=== PATIENT | male | born 1945 | race Caucasian/White ===

== ENCOUNTER 2022-04-15 16:03 | Inpatient (IN) | payer MEDICARE, OTHER ==
[2022-04-15] MEDS ORDERED: SODIUM CHLORIDE 0.9% 500 ML INFUS.BAG IV ONE (17:21)
[2022-04-15 18:02] LABS: BASO % 0.4 % (0-2.0); EOS % 1.2 % (0-4.5); HEMATOCRIT 40.9 % (35.4-49); HEMOGLOBIN 14.9 GM/dL (11.7-16.9); LYMPH % 9.9 % (8-40); MCH 32.6 pg (25.7-33.7); MCHC 36.4 g/dl (32.0-35.9); MEAN CELL VOLUME 89.7 fl (80-96); MEAN PLT VOLUME 7.7 fl (7.5-11.1); MONO % 7.6 % (3.8-10.2); NEUT % 80.9 % (42.8-82.8); PLATELET COUNT 284 10^3/uL (134-434); RBC 4.56 M/mm3 (4.00-5.60); RDW 13.6 % (11.9-15.9); WHITE BLOOD COUNT 8.9 K/mm3 (4.0-10.0)
[2022-04-15 18:17] LABS: BLOOD UREA NITROGEN 19.8 mg/dL (7-18); CALCIUM 9.4 mg/dL (8.5-10.1)
[2022-04-15 18:18] LABS: ALBUMIN 4.4 g/dl (3.4-5.0)
[2022-04-15 18:20] LABS: CREATININE 1.4 mg/dL (0.55-1.3)
[2022-04-15 18:22] LABS: BILIRUBIN,TOTAL 0.8 mg/dL (0.2-1)
[2022-04-15 20:47] LABS: EPI CELLS 15 /uL (0-25.1); HYALINE CASTS 9 /uL (0-3.1); URINE APPEARANCE CLEAR; URINE BACTERIA 1 /uL (0-1359); URINE BILIRUBIN NEGATIVE (NEGATIVE); URINE COLOR DK YELLOW; URINE GLUCOSE (UA) 3+ (NEGATIVE); URINE KETONE 1+ (NEGATIVE); URINE LEUK ESTERASE NEGATIVE (NEGATIVE); URINE NITRITE NEGATIVE (NEGATIVE); URINE PROTEIN 2+ (NEGATIVE); URINE RBC 12 /uL (0-23.9); URINE WBC 17 /uL (0-25.8)
[2022-04-15] MEDS ORDERED: KETOROLAC TROMETHAMINE 15 MG/ML VIAL IVPUSH ONE (20:51)
[2022-04-15] MEDS ORDERED: SODIUM CHLORIDE 1,000 ML IV SCH (21:15)
[2022-04-15 23:18] LABS: CALCIUM 8.8 mg/dL (8.5-10.1)
[2022-04-15 23:19] LABS: BLOOD UREA NITROGEN 20.7 mg/dL (7-18)
[2022-04-15 23:22] LABS: CREATININE 1.1 mg/dL (0.55-1.3)
[2022-04-15] MEDS ORDERED: HEPARIN NA (PORCINE) 5,000 UNITS/ML 1ML VIAL ONE (23:27)
[2022-04-15] MEDS: HEPARIN NA (PORCINE) 5,000 UNITS/ML 1ML VIAL SQ SCH (23:30)
[2022-04-16 00:06] LABS: MAGNESIUM 1.9 mg/dL (1.8-2.4)
[2022-04-16 00:10] LABS: PHOSPHOROUS 3.2 mg/dL (2.5-4.9)
[2022-04-16] MEDS ORDERED: HEPARIN NA (PORCINE) 5,000 UNITS/ML 1ML VIAL ONE ×2 (05:42→13:48)
[2022-04-16] MEDS: HEPARIN NA (PORCINE) 5,000 UNITS/ML 1ML VIAL SQ SCH ×3 (05:49→22:39)
[2022-04-16 07:29] LABS: BASO % 0.5 % (0-2.0); EOS % 1.5 % (0-4.5); HEMATOCRIT 36.2 % (35.4-49); HEMOGLOBIN 13.1 GM/dL (11.7-16.9); LYMPH % 15.1 % (8-40); MCH 31.9 pg (25.7-33.7); MCHC 36.1 g/dl (32.0-35.9); MEAN CELL VOLUME 88.3 fl (80-96); MEAN PLT VOLUME 7.8 fl (7.5-11.1); MONO % 11.5 % (3.8-10.2); NEUT % 71.4 % (42.8-82.8); PLATELET COUNT 257 10^3/uL (134-434); RDW 13.5 % (11.9-15.9); WHITE BLOOD COUNT 6.5 K/mm3 (4.0-10.0)
[2022-04-16] MEDS ORDERED: amLODIPine BESYLATE 5 MG TABLET (FP) ONE (08:38)
[2022-04-16] MEDS ORDERED: TAMSULOSIN HCL 0.4 MG CAP ONE (08:39)
[2022-04-16] MEDS ORDERED: DOCUSATE SODIUM 100 MG CAPSULE (FP) PO ONE (08:39)
[2022-04-16] MEDS: TAMSULOSIN HCL 0.4 MG CAP PO SCH (09:07)
[2022-04-16] MEDS: DOCUSATE SODIUM 100 MG CAPSULE (FP) PO SCH (09:07)
[2022-04-16 09:34] LABS: PHOSPHOROUS 2.7 mg/dL (2.5-4.9)
[2022-04-16 09:47] LABS: BLOOD UREA NITROGEN 19.9 mg/dL (7-18); CALCIUM 8.9 mg/dL (8.5-10.1)
[2022-04-16] MEDS ORDERED: amLODIPine BESYLATE 5 MG TABLET (FP) PO SCH (10:00)
[2022-04-16] MEDS ORDERED: PATIENT'S OWN MEDICATION (NON-FORMULARY) (Linaclotide [Linzess] 145 MCG Capsule) PO SCH (10:00)
[2022-04-16 12:14] LABS: BLOOD UREA NITROGEN 17.6 mg/dL (7-18)
[2022-04-16 12:18] LABS: CREATININE 0.9 mg/dL (0.55-1.3)
[2022-04-17] MEDS: HEPARIN NA (PORCINE) 5,000 UNITS/ML 1ML VIAL SQ SCH ×3 (06:35→22:24)
[2022-04-17] MEDS: DOCUSATE SODIUM 100 MG CAPSULE (FP) PO SCH (09:39)
[2022-04-17] MEDS: FINASTERIDE 5 MG TABLET (FP) PO SCH (09:39)
[2022-04-17] MEDS: amLODIPine BESYLATE 5 MG TABLET (FP) PO SCH (09:39)
[2022-04-17] MEDS: LOSARTAN POTASSIUM 50 MG TABLET PO SCH (09:39)
[2022-04-17] MEDS: TAMSULOSIN HCL 0.4 MG CAP PO SCH ×2 (09:39→22:23)
[2022-04-17] MEDS ORDERED: PATIENT'S OWN MEDICATION (NON-FORMULARY) (Amlodipine Bes/Olmesartan Med [Amlodipine-Olmesa PO SCH (10:00)
[2022-04-17] MEDS: SODIUM CHLORIDE 1,000 ML IV SCH (12:26)
[2022-04-17] MEDS: ACETAMINOPHEN 325 MG TABLET (FP) PO PRN ×2 (14:37→22:41)
[2022-04-17 15:21] LABS: BASO % 0.4 % (0-2.0); EOS % 0.7 % (0-4.5); HEMATOCRIT 36.5 % (35.4-49); HEMOGLOBIN 13.1 GM/dL (11.7-16.9); LYMPH % 11.9 % (8-40); MCH 31.7 pg (25.7-33.7); MEAN CELL VOLUME 88.2 fl (80-96); MEAN PLT VOLUME 7.5 fl (7.5-11.1); MONO % 9.7 % (3.8-10.2); NEUT % 77.3 % (42.8-82.8); PLATELET COUNT 225 10^3/uL (134-434); RBC 4.14 M/mm3 (4.00-5.60); RDW 13.4 % (11.9-15.9); WHITE BLOOD COUNT 6.9 K/mm3 (4.0-10.0)
[2022-04-17 15:53] LABS: ALBUMIN 3.5 g/dl (3.4-5.0); BLOOD UREA NITROGEN 13.9 mg/dL (7-18); CALCIUM 8.7 mg/dL (8.5-10.1)
[2022-04-17 15:56] LABS: CREATININE 0.8 mg/dL (0.55-1.3)
[2022-04-17 15:58] LABS: BILIRUBIN,TOTAL 0.8 mg/dL (0.2-1); TOT PROT 6.4 g/dl (6.4-8.2)
[2022-04-17 17:52] LABS: EPI CELLS 4 /uL (0-25.1); HYALINE CASTS 1 /uL (0-3.1); PH,URINE 5.5 (5.0-8.0); URINE APPEARANCE CLEAR; URINE BACTERIA 1 /uL (0-1359); URINE BILIRUBIN NEGATIVE (NEGATIVE); URINE COLOR YELLOW; URINE GLUCOSE (UA) TRACE (NEGATIVE); URINE KETONE 1+ (NEGATIVE); URINE LEUK ESTERASE NEGATIVE (NEGATIVE); URINE NITRITE NEGATIVE (NEGATIVE); URINE PROTEIN 1+ (NEGATIVE); URINE RBC 7 /uL (0-23.9); URINE WBC 24 /uL (0-25.8)
[2022-04-18] MEDS ORDERED: oxyCODONE HCL 5 MG TABLET PO ONE (03:17)
[2022-04-18] MEDS: SODIUM CHLORIDE 1,000 ML IV SCH ×2 (03:20→13:27)
[2022-04-18] MEDS: HEPARIN NA (PORCINE) 5,000 UNITS/ML 1ML VIAL SQ SCH ×3 (06:38→22:03)
[2022-04-18] MEDS: amLODIPine BESYLATE 5 MG TABLET (FP) PO SCH (10:17)
[2022-04-18] MEDS: TAMSULOSIN HCL 0.4 MG CAP PO SCH ×2 (10:18→22:03)
[2022-04-18] MEDS: LOSARTAN POTASSIUM 50 MG TABLET PO SCH (10:18)
[2022-04-18] MEDS: DOCUSATE SODIUM 100 MG CAPSULE (FP) PO SCH (10:18)
[2022-04-18] MEDS: FINASTERIDE 5 MG TABLET (FP) PO SCH (10:19)
[2022-04-18 10:36] VITALS: RESP 18
[2022-04-18] MEDS ORDERED: SENNOSIDES 8.6MG TABLET (FP) PO PRN (12:44)
[2022-04-18 12:51] VITALS: BMI 23.3
[2022-04-18] MEDS: POLYETHYLENE GLYCOL (HEALTHYLAX) 3350 17 GM PACKET PO SCH (13:28)
[2022-04-18 17:47] LABS: BASO % 0.4 % (0-2.0); EOS % 0.8 % (0-4.5); HEMATOCRIT 35.1 % (35.4-49); HEMOGLOBIN 12.8 GM/dL (11.7-16.9); MCH 31.9 pg (25.7-33.7); MCHC 36.6 g/dl (32.0-35.9); MEAN CELL VOLUME 87.3 fl (80-96); MEAN PLT VOLUME 7.8 fl (7.5-11.1); NEUT % 76.8 % (42.8-82.8); PLATELET COUNT 212 10^3/uL (134-434); RBC 4.03 M/mm3 (4.00-5.60); RDW 13.6 % (11.9-15.9); WHITE BLOOD COUNT 6.6 K/mm3 (4.0-10.0)
[2022-04-18 18:15] LABS: CALCIUM 8.7 mg/dL (8.5-10.1)
[2022-04-18 18:16] LABS: BLOOD UREA NITROGEN 10.9 mg/dL (7-18)
[2022-04-18 18:19] LABS: CREATININE 0.7 mg/dL (0.55-1.3)
[2022-04-18 18:25] LABS: CALCIUM 8.7 mg/dL (8.5-10.1)
[2022-04-18 18:26] LABS: ALBUMIN 3.3 g/dl (3.4-5.0); BLOOD UREA NITROGEN 10.2 mg/dL (7-18); MAGNESIUM 1.6 mg/dL (1.8-2.4)
[2022-04-18 18:29] LABS: CREATININE 0.7 mg/dL (0.55-1.3)
[2022-04-18 18:30] LABS: BILIRUBIN,TOTAL 0.5 mg/dL (0.2-1)
[2022-04-19] MEDS: HEPARIN NA (PORCINE) 5,000 UNITS/ML 1ML VIAL SQ SCH ×2 (05:22→13:25)
[2022-04-19 08:31] VITALS: BP 128/69; PULSE 78; TEMP 98.3
[2022-04-19] MEDS: POLYETHYLENE GLYCOL (HEALTHYLAX) 3350 17 GM PACKET PO SCH (09:37)
[2022-04-19] MEDS: TAMSULOSIN HCL 0.4 MG CAP PO SCH (09:37)
[2022-04-19] MEDS: amLODIPine BESYLATE 5 MG TABLET (FP) PO SCH (09:38)
[2022-04-19] MEDS: LOSARTAN POTASSIUM 50 MG TABLET PO SCH (09:38)
[2022-04-19] MEDS: DOCUSATE SODIUM 100 MG CAPSULE (FP) PO SCH (09:38)
[2022-04-19] MEDS: FINASTERIDE 5 MG TABLET (FP) PO SCH (09:39)
[2022-04-19 12:11] LABS: BASO % 0.3 % (0-2.0); EOS % 1.2 % (0-4.5); HEMOGLOBIN 12.4 GM/dL (11.7-16.9); LYMPH % 11.3 % (8-40); MCH 32.1 pg (25.7-33.7); MCHC 36.5 g/dl (32.0-35.9); MEAN CELL VOLUME 88.1 fl (80-96); MEAN PLT VOLUME 7.4 fl (7.5-11.1); NEUT % 75.2 % (42.8-82.8); PLATELET COUNT 197 10^3/uL (134-434); RBC 3.86 M/mm3 (4.00-5.60); RDW 13.6 % (11.9-15.9); WHITE BLOOD COUNT 6.9 K/mm3 (4.0-10.0)
[2022-04-19 12:38] LABS: CALCIUM 8.5 mg/dL (8.5-10.1)
[2022-04-19 12:39] LABS: BLOOD UREA NITROGEN 8.4 mg/dL (7-18); MAGNESIUM 1.5 mg/dL (1.8-2.4)
[2022-04-19 12:41] LABS: CREATININE 0.6 mg/dL (0.55-1.3)
[2022-04-19 12:43] LABS: BILIRUBIN,TOTAL 0.5 mg/dL (0.2-1); TOT PROT 5.7 g/dl (6.4-8.2)
== END 2022-04-19 17:55 | disposition home or self-care (01) | DRG 729 ==
LOC: JER 16:03 → JERBED 20:52 → J7W 04-16 14:41
PROVIDERS: ADMIT Internal Medicine; ATTEND Internal Medicine
DX: N50.819 Testicular pain, unspecified (principal); E87.1 Hypo-osmolality and hyponatremia; N17.9 Acute kidney failure, unspecified; N43.3 Hydrocele, unspecified; I86.1 Scrotal varices; N40.0 Benign prostatic hyperplasia without lower urinary tract symptoms; I10 Essential (primary) hypertension; E11.9 Type 2 diabetes mellitus without complications; R80.9 Proteinuria, unspecified
CPT/HCPCS: 0241U-QW; 36415; 71046-TC-FY; 74176-TC; 76775-TC; 76870-TC; 80048; 80053; 80061; 81003; 82105; 82570; 82962; 83036; 83735; 83930; 83935; 84100; 84156; 84300; 84443; 85025; 87086; 93005; 93010; 99285-25; J1644